=== PATIENT | female | born 1985 | race Caucasian/White ===

== ENCOUNTER 2020-12-09 15:38 | Emergency (ER) | payer MEDICAID ==
[~2020-12-09] VITALS: Ht 157.5 cm; Wt 52.2 kg
--- NOTE | 2020-12-10 14:03 | EKG ---
[facility] [address] [facility] [place], [place] [address] Signed Normal sinus rhythm Nonspecific ST abnormality Abnormal ECG No previous ECGs available Confirmed by COLUMBA MACKENZIE MD ([id number]) on 12/10/2020 2:03:28 PM Electronically Signed By: COLUMBA MACKENZIE MD 12/10/20 1403 PATIENT NAME: ARUN HANKS Electrocardiogram DATE OF : 87 PHYSICIAN: COLUMBA MACKENZIE MD REPORT #: [id number] REPORT IS CONFIDENTIAL AND NOT TO BE RELEASED WITHOUT AUTHORIZATION
== END 2020-12-10 13:20 ==
LOC: ED 15:38
DX: F31.9 Bipolar disorder, unspecified (principal); F43.10 Post-traumatic stress disorder, unspecified; F17.200 Nicotine dependence, unspecified, uncomplicated; Z20.822 Contact with and (suspected) exposure to COVID-19
CPT/HCPCS: 80053; 80176; 81001; 84443; 85025; 93005; 93010; 99285-25; C9803; U0003

== ENCOUNTER 2020-12-26 12:50 | Emergency (ER) | payer MEDICAID ==
[~2020-12-26] VITALS: Ht 157.5 cm; Wt 52.2 kg
--- NOTE | ~2020-12-26 | EKG ---
[facility] [address] [facility], [place] [address] Draft EK completed, results pending confirmation PATIENT NAME: ARUN HANKS Electrocardiogram DATE OF : 87 PHYSICIAN: PRELIMINARY REPORT #: [id number] REPORT IS CONFIDENTIAL AND NOT TO BE RELEASED WITHOUT AUTHORIZATION
[2020-12-26] MEDS ORDERED: LITHIUM CARBON150 MG PO (12:58)
[2020-12-26] MEDS ORDERED: OLANZAPINE2.5 MG PO (12:58)
--- OUTSIDE RECORDS SUMMARY | 2020-12-26 12:58 | XMS ---
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 Aisha has no Care Guidelines for this patient. Tammy VISIT COUNT (12 MO.) [facility] TOTAL 2 NOTE: Visits indicate total known visits. ED/C VISIT TRACKING (12 MO.) [facility] COMPLAINT: - ABD PAIN 12/09/2020 15:[address] [facility] [place] TYPE: Emergency COMPLAINT: - MEDICAL CLEARANCE DIAGNOSES: - Bipolar disorder, unspecified - Post-traumatic stress disorder, unspecified - Nicotine dependence, unspecified, uncomplicated INPATIENT VISIT TRACKING (12 MO.) No inpatient visits to display in this time frame [email or web address]
[2020-12-26] MEDS ORDERED: LITHIUM CARBON450 MG PO (13:00)
[2020-12-26] MEDS ORDERED: CLONIDINE HCL0.1 M1 PO (13:00)
[2020-12-26] MEDS ORDERED: ZYPREXA ZYDIS20 MG PO (13:00)
[2020-12-26] MEDS ORDERED: TRAZODONE HCL100 MG PO (13:01)
[2020-12-26] MEDS ORDERED: OMEPRAZOLE20 MG PO (13:01)
[2020-12-26] MEDS ORDERED: STOOL SOFTENER240 MG PO (13:01)
== END 2020-12-26 17:26 | disposition home or self-care (01) ==
LOC: ED 12:50
DX: K52.9 Noninfective gastroenteritis and colitis, unspecified (principal); F43.10 Post-traumatic stress disorder, unspecified; F17.200 Nicotine dependence, unspecified, uncomplicated; Z79.899 Other long term (current) drug therapy
CPT/HCPCS: 74177; 80053; 81001; 83690; 85025; 99284-25; J1170; J7030; Q9967

== ENCOUNTER 2021-02-05 11:50 | Emergency (ER) | payer OTHER ==
[~2021-02-05] VITALS: Ht 157.5 cm; Wt 52.2 kg
[~2021-02-05 11:50] MED LIST: CLONIDINE HCL0.1 M1 PO; LITHIUM CARBON150 MG PO; LITHIUM CARBON450 MG PO; OLANZAPINE2.5 MG PO; OMEPRAZOLE20 MG PO; STOOL SOFTENER240 MG PO; TRAZODONE HCL100 MG PO; ZYPREXA ZYDIS20 MG PO
--- OUTSIDE RECORDS SUMMARY | 2021-02-05 11:52 | XMS ---
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 Aisha has no Care Guidelines for this patient. Care History Medical/Surgical 12/29/2020 [facility] - W CALLED PATIENT- PATIENT STATED SHE HAS AN ESTABLISHING CARE APT WITH [facility] ON 01/08/21 @ 4:30PM. - NO FURTHER RESOURCES/HELP NEEDED AT THIS TIME. E.D. VISIT COUNT (12 MO.) 3 [facility] TOTAL 3 NOTE: Visits indicate total known visits. ED/C VISIT TRACKING (12 MO.) 02/05/2021 11:50 [facility] TYPE: Emergency COMPLAINT: - STROKE SYMPTOMS 12/26/2020 12:[facility] [place] TYPE: Emergency COMPLAINT: - ABD PAIN DIAGNOSES: - Nicotine dependence, unspecified, uncomplicated - Other local company intermodal truck driver (current) drug therapy - Post-traumatic stress disorder, unspecified - Noninfective gastroenteritis and colitis, unspecified - Right lower quadrant pain 12/09/2020 15:39 [facility] [place] TYPE: Emergency COMPLAINT: - MEDICAL CLEARANCE DIAGNOSES: - Bipolar disorder, unspecified - Post-traumatic stress disorder, unspecified - Nicotine dependence, unspecified, uncomplicated INPATIENT VISIT TRACKING (12 MO.) No inpatient visits to display in this time frame [email or web address]
[2021-02-05] MEDS ORDERED: OLANZAPINE5 MG PO (12:18)
[2021-02-05] MEDS ORDERED: GABAPENTIN600 MG PO (12:19)
[2021-02-05] MEDS ORDERED: HYDROXYZINE HCL50 MG PO (12:20)
[2021-02-05] MEDS ORDERED: PRAZOSIN HCL2 MG PO (12:20)
[2021-02-05] MEDS ORDERED: TRAZODONE HCL150 MG PO (12:21)
--- NOTE | 2021-02-06 09:01 | EKG ---
[facility] [address] [facility] [place], [place] [address] Signed Normal sinus rhythm Normal ECG When compared with ECG of 09-DEC-2020 16:40, No significant change was found Confirmed by COLUMBA MACKENZIE MD ([id number]) on 02/06/2021 9:01:18 AM Electronically Signed By: COLUMBA MACKENZIE MD 02/06/21900 PATIENT NAME: SHANDRA HANKSMindi KRAUS Electrocardiogram DATE OF : 87 PHYSICIAN: COLUMBA MACKENZIE MD REPORT #: [id number] REPORT IS CONFIDENTIAL AND NOT TO BE RELEASED WITHOUT AUTHORIZATION
== END 2021-02-05 18:22 | disposition home or self-care (01) ==
LOC: ED 11:50
DX: G43.809 Other migraine, not intractable, without status migrainosus (principal); A59.9 Trichomoniasis, unspecified; R94.6 Abnormal results of thyroid function studies; F17.200 Nicotine dependence, unspecified, uncomplicated; Z79.899 Other long term (current) drug therapy
CPT/HCPCS: 70450; 70496; 70551; 71045; 80053; 81001; 83735; 84443; 84484; 84703; 85025; 85651; 93005; 93010; 99285-25; A9270-GY; G0480; J0780; J1100; J1200; J7030; Q9967

== ENCOUNTER 2024-05-10 02:48 | Emergency (ER) | payer OTHER ==
[~2024-05-10] VITALS: Ht 157.5 cm; Wt 57.6 kg
[~2024-05-10 02:48] MED LIST changes: +ABILIFY15 MG PO; +GABAPENTIN600 MG PO; +HYDROXYZINE HCL25 MG PO; +HYDROXYZINE HCL50 MG PO; +LAMICTAL25 MG PO; +MACROBID 100 M100 MG PO; +OLANZAPINE5 MG PO; +PAXIL10 MG PO; +PRAZOSIN HCL2 MG PO; +PYRIDIUM100 MG PO; +TRAZODONE HCL150 MG PO
[2024-05-10 03:02] LABS: BASOPHILS 0.6 % (0-2); EOSINOPHILS 1.8 % (0-6); HEMATOCRIT 41.4 % (35.0-50.0); HEMOGLOBIN 14.2 g/dL (12.0-18.0); LYMPHOCYTES 56.7 % (24-44); MCHC 34.3 g/dl (30-36); MCV 90.6 fl (81-99); MONOCYTES 7.4 % (0-12); NEUTROPHILS 33.5 % (39-80); PLATELET COUNT 313 K/uL (140-440); RBC 4.57 M/ul (4.3-5.7); RDW 13.1 (10.5-15.0)
[2024-05-10] MEDS ORDERED: LORazepam 2 MG/ML VIAL IV ONE ×2 (03:05→03:30)
[2024-05-10 03:20] LABS: LITHIUM <0.2 mmol/L (0.6-1.2)
[2024-05-10 03:24] LABS: ACETAMINOPHEN 0 ug/mL (10-30); ALBUMIN/GLOBULIN RATIO 1.14 (1.1-2.4); ALCOHOL, MEDICAL 191 ng/dL (<3); ALKALINE PHOSPHATASE 91 U/L (46-116); ALT (SGPT) 28 U/L (14-59); ANION GAP 12.5 (7-21); AST (SGOT) 21 U/L (15-37); BILIRUBIN, TOTAL 0.3 ng/dL (0.2-1.0); BUN/CREATININE RATIO 10.46 (6.0-28.6); CALCIUM 9.4 mg/dL (8.5-10.1); CARBON DIOXIDE 30 mmol/L (21-32); CHLORIDE 107 mmol/L (98-107); CREATININE, SERUM 0.86 mg/dL (0.55-1.02); GLOMERULAR FILTRATION RATE,EST 89 mL/min (>60); POTASSIUM 4.5 mmol/L (3.5-5.1); PROTEIN, TOTAL 7.5 g/dL (6.4-8.2); SALICYLATE 2.6 mg/dL (2.8-20.0); TSH, 3RD GENERATION 3.668 uIU/mL (0.358-3.740); UREA NITROGEN 9 mg/dL (7-18)
[2024-05-10 03:26] LABS: VALPROIC ACID <3 ug/mL (50-100)
[2024-05-10] MEDS ORDERED: ondansetron HCL 4 MG/2 ML VIAL IV ONE (03:30)
[2024-05-10 03:40] LABS: BILIRUBIN, URINE NEGATIVE (negative); BLOOD/HGB, URINE NEGATIVE (Negative); KETONE, URINE NEGATIVE (Negative); LEUK ESTERASE, URINE SMALL (negative); NITRITE, URINE NEGATIVE (negative)
[2024-05-10 03:46] LABS: EPITHELIAL CELLS, URINE SQUAMOUS 3+ /lpf (0-1+); RED BLOOD CELLS, URINE 0-1 /hpf (0-5)
[2024-05-10 03:47] LABS: BACTERIA, URINE RARE /hpf (negative); CASTS, URINE NONE SEEN \\lpf; COLLECTION TYPE, URINE CLEAN CATCH; CRYSTALS, URINE NONE SEEN (0-1+); REFLEX CULTURE, URINE No (No)
[2024-05-10 03:54] LABS: AMPHETAMINES, URINE POSITIVE (NEGATIVE); BARBITURATES, URINE NEGATIVE (NEGATIVE); BENZODIAZEPINE, URINE NEGATIVE (NEGATIVE); BUPRENORPHINE, URINE NEGATIVE (NEGATIVE); CANNABINOID, URINE POSITIVE (NEGATIVE); COCAINE, URINE NEGATIVE (NEGATIVE); ECSTASY, URINE POSITIVE (NEGATIVE); FENTANYL, URINE NEGATIVE (NEGATIVE); METHADONE, URINE NEGATIVE (NEGATIVE); OPIATES, URINE NEGATIVE (NEGATIVE); OXYCODONE, URINE NEGATIVE (NEGATIVE); PHENCYCLIDINE, URINE NEGATIVE (NEGATIVE)
[2024-05-10 07:22] LABS: ALCOHOL, MEDICAL 99 ng/dL (<3); VALPROIC ACID <3 ug/mL (50-100)
[2024-05-10 10:25] VITALS: BP 98/73
--- NOTE | 2024-05-10 15:24 | EKG ---
[facility] [address] [facility] [place], [place] [address] Signed Normal sinus rhythm Nonspecific ST abnormality Abnormal ECG When compared with ECG of 05-FEB-2021 12:30, ST now depressed in Inferior leads Non-specific change in ST segment in Anterior leads Confirmed by Rico Lugo MD ([id number]) on 05/10/2024 3:24:12 PM Electronically Signed By: RICO LUGO MD 05/10/24 1524 PATIENT NAME: ARUN HANKS Electrocardiogram DATE OF : [birth year] PHYSICIAN: RICO LUGO MD REPORT #: [id number] REPORT IS CONFIDENTIAL AND NOT TO BE RELEASED WITHOUT AUTHORIZATION
== END 2024-05-10 10:25 | disposition home or self-care (01) ==
LOC: ED 02:48
PROVIDERS: Emergency Medicine
DX: T50.912A Poisoning by multiple unspecified drugs, medicaments and biological substances, intentional self-harm, initial encounter (principal); R41.82 Altered mental status, unspecified; F10.929 Alcohol use, unspecified with intoxication, unspecified; F19.10 Other psychoactive substance abuse, uncomplicated; F31.9 Bipolar disorder, unspecified; F17.200 Nicotine dependence, unspecified, uncomplicated; Z79.899 Other long term (current) drug therapy; Y90.4 Blood alcohol level of 80-99 mg/100 ml
CPT/HCPCS: 36415; 51702; 70450; 80053; 80164; 80178; 80307; 81001; 82140; 83735; 84443; 84702; 84703; 85025; 93005; 93010; 99285-25; G0480; J2060; J2405

== ENCOUNTER 2024-07-29 15:14 | Emergency (ER) | payer OTHER ==
[~2024-07-29] VITALS: Ht 157.5 cm; Wt 54.0 kg
--- OUTSIDE RECORDS SUMMARY | ~2024-07-29 | XMS | Continuity of Care Document ---
Demographics + + + | Address | [address] | | | [place] [address] | + + + | Preferred Language | Unknown | + + + | Marital Status | Never | + + + | Sabianist Affiliation | Unknown | + + + | Race | White | + + + | Ethnic Group | Unknown | + + + Author + + + | Author | [facility] | + + + | Organization | [facility] | + + + | Address | [address] | | | [place] [address] | + + + | Phone | | + + + Care Team Providers + + + + | Care Metallurgical Engineering Teacher Name | Role | Phone | + + + + Unavailable | Unavailable | + + + + Unavailable | Unavailable | + + + + Allergies No information. Encounters No information. Functional Status No information. Immunizations No information. Medications + + + + | date | description | facility | + + + + | 2024-06-05 00:00 | ondansetron 4 MG | [facility] | | | Disintegrating Oral Tablet | | + + + + | 2024-05-29 00:00 | lamotrigine 25 MG Oral | [facility] | | | Tablet | | + + + + | 2024-05-29 00:00 | lamoTRIgine 25 MG Oral | [facility] | | | Tablet | | + + + + | 2024-06-05 00:00 | Ondansetron 4 MG Oral | [facility] | | | Tablet Disintegrating | | + + + + Problems No information. Procedures No information. Results/Labs No information. Social History + + + + | date | description | facility | + + + + | 2024-06-05 00:00 | Unknown if ever smoked | [facility] | | | | | + + + + | 2024-06-05 00:00 | Smoker (finding) | [facility] | | | | | + + + + Vital Signs + + + + + | date | measurement | value | units | + + + + + | 2024-06-05 00:00 | BMI | 23.4 | 1 | + + + + + | 2024-06-05 00:00 | BP_diastolic | 66 | mmHg | + + + + + | 2024-06-05 00:00 | BP_systolic | 108 | mmHg | + + + + + | 2024-06-05 00:00 | BSA | 1.6 | 1 | + + + + + | 2024-06-05 00:00 | heart_rate | 1|1| | completed | + + + + + | 2024-06-05 00:00 | heart_rate | 82 | /min | + + + + + | 2024-06-05 00:00 | height_metric | 156.84 | cm | + + + + + | 2024-06-05 00:00 | height_standard | 61.75 | in | + + + + + | 2024-06-05 00:00 | o2_saturation | 98 | % | + + + + + | 2024-06-05 00:00 | temperature_metric | 36.89 | C | | | | | | + + + + + | 2024-06-05 00:00 | | 98.4 | F | | | temperature_standar | | | | | d | | | + + + + + | 2024-06-05 00:00 | weight_metric | 57.61 | kg | + + + + + | 2024-06-05 00:00 | weight_standard | 127 | lb | + + + + +"
[2024-07-29] MEDS ORDERED: ONDANSETRON ODT4 MG PO (15:28)
[2024-07-29 16:10] VITALS: BP 111/86
[2024-07-29 16:42] LABS: INFLUENZA B NAA NEGATIVE (NEGATIVE); RESPIRATORY SYNCYTIAL VIR NAA NEGATIVE (NEGATIVE)
== END 2024-07-29 16:10 | disposition left against medical advice (07) ==
LOC: ED 15:14
PROVIDERS: Emergency Medicine
DX: B34.9 Viral infection, unspecified (principal); H40.9 Unspecified glaucoma; F17.200 Nicotine dependence, unspecified, uncomplicated; Z79.899 Other long term (current) drug therapy; Z53.29 Procedure and treatment not carried out because of patient's decision for other reasons
CPT/HCPCS: 87502; 99283; U0002

== ENCOUNTER 2025-01-14 18:48 | Emergency (ER) | payer OTHER ==
[~2025-01-14] VITALS: Ht 157.5 cm; Wt 55.4 kg
[~2025-01-14 18:48] MED LIST changes: +ONDANSETRON ODT4 MG PO
[2025-01-14 19:07] LABS: BASOPHILS 0.2 % (0.1-1.2); EOSINOPHILS 1.3 % (0.7-5.8); LYMPHOCYTES 34.6 % (19.3-51.7); MCH 30.5 PG (25.6-32.2); MCHC 34.5 g/dL (32.2-35.5); MCV 88.4 fL (79.4-94.8); MONOCYTES 8.2 % (4.7-12.5); NEUTROPHILS 55.5 % (34.0-71.1); RBC 4.66 M/uL (3.93-5.22)
[2025-01-14 19:19] LABS: INR 0.93 (0.80-1.30); PROTIME 11.9 Sec (11.2-14.2)
[2025-01-14 19:33] LABS: ALCOHOL, MEDICAL <3 ng/dL (<3); ALT (SGPT) 34 U/L (14-59); AST (SGOT) 20 U/L (15-37); GLOMERULAR FILTRATION RATE,EST 85 mL/min (>60); PROTEIN, TOTAL 8.0 g/dL (6.4-8.2); TSH, 3RD GENERATION 2.084 uIU/mL (0.358-3.740); UREA NITROGEN 15 mg/dL (7-18)
[2025-01-14] MEDS ORDERED: LACTATED RINGER'S 1,000 ML IV ONE (20:00)
[2025-01-14] MEDS ORDERED: diazePAM 10 MG/2 ML SYR IV ONE (20:00)
[2025-01-14] MEDS ORDERED: LORazepam 2 MG/ML VIAL ONE (20:45)
[2025-01-14 21:00] LABS: BLOOD/HGB, URINE NEGATIVE (Negative); KETONE, URINE SMALL (Negative); LEUK ESTERASE, URINE TRACE (negative); NITRITE, URINE NEGATIVE (negative)
[2025-01-14] MEDS ORDERED: LORazepam 2 MG/ML VIAL IV ONE (21:00)
[2025-01-14] MEDS ORDERED: OXCARBAZEPINE300 MG PO (21:01)
[2025-01-14 21:05] LABS: BACTERIA, URINE 2+ /hpf (negative); CASTS, URINE NONE SEEN \\lpf; CRYSTALS, URINE NONE SEEN (0-1+); EPITHELIAL CELLS, URINE SQUAMOUS 1+ /lpf (0-1+); REFLEX CULTURE, URINE Yes (No)
[2025-01-14 21:15] LABS: AMPHETAMINES, URINE POSITIVE (NEGATIVE); BARBITURATES, URINE NEGATIVE (NEGATIVE); BENZODIAZEPINE, URINE NEGATIVE (NEGATIVE); CANNABINOID, URINE POSITIVE (NEGATIVE); COCAINE, URINE NEGATIVE (NEGATIVE); ECSTASY, URINE POSITIVE (NEGATIVE); FENTANYL, URINE NEGATIVE (NEGATIVE); METHADONE, URINE NEGATIVE (NEGATIVE); OPIATES, URINE NEGATIVE (NEGATIVE); OXYCODONE, URINE NEGATIVE (NEGATIVE); PHENCYCLIDINE, URINE NEGATIVE (NEGATIVE)
[2025-01-14] MEDS ORDERED: MACROBID 100 M100 MG PO (22:40)
[2025-01-15 04:15] VITALS: BP 102/76
== END 2025-01-15 04:15 | disposition home or self-care (01) ==
LOC: ED 18:48
PROVIDERS: Emergency Medicine
DX: R56.9 Unspecified convulsions (principal); F19.20 Other psychoactive substance dependence, uncomplicated; F17.200 Nicotine dependence, unspecified, uncomplicated; F43.10 Post-traumatic stress disorder, unspecified; Z79.899 Other long term (current) drug therapy
CPT/HCPCS: 36415; 70450; 80053; 80307; 81001; 83735; 84443; 84702; 84703; 85025; 85610; 87088; 96361; 96365; 96375; 99285-25; G0480; J0696; J1790; J1953; J2060; J2405; J3360; J7121

== ENCOUNTER 2025-01-18 22:46 | Emergency (ER) | payer OTHER ==
[~2025-01-18] VITALS: Ht 157.5 cm; Wt 55.4 kg
[~2025-01-18 22:46] MED LIST changes: +OXCARBAZEPINE300 MG PO
[2025-01-18 23:21] VITALS: BP 125/102
== END 2025-01-18 23:22 | disposition home or self-care (01) ==
LOC: ED 22:46
DX: R56.9 Unspecified convulsions (principal); F43.10 Post-traumatic stress disorder, unspecified; F17.200 Nicotine dependence, unspecified, uncomplicated; Z90.710 Acquired absence of both cervix and uterus
CPT/HCPCS: 99283